=== PATIENT | female | born 1990 | race African-American/Black ===

== ENCOUNTER 2024-07-06 11:45 | Emergency (ER) | payer OTHER ==
[~2024-07-06] VITALS: Ht 175.3 cm; Wt 104.9 kg
[2024-07-06] MEDS: IBUPROFEN 800 MG TAB PO ONE (12:55)
[2024-07-06 12:56] VITALS: BP 162/95; TEMP 96.4; O2SAT 97
== END 2024-07-06 12:59 | disposition home or self-care (01) ==
LOC: M ED 11:45
DX: F32.A Depression, unspecified (principal); F41.9 Anxiety disorder, unspecified; M32.9 Systemic lupus erythematosus, unspecified

== ENCOUNTER → 2024-08-29 | Outpatient (CLI) | payer MEDICAID ==
[~2024-08-29] MED LIST: BUPR-766 PO; CETI10TA PO; CIMZ200K INJ; ERGO500029 PO; HYDR50TA70 PO; METR-265 PO; TRAZ-189 PO
== END ==
LOC: M OUTALCOH 08:38
PROVIDERS: ATTEND Psychiatry & Neurology Psychiatry
DX: F14.20 Cocaine dependence, uncomplicated (principal); F10.20 Alcohol dependence, uncomplicated; F17.200 Nicotine dependence, unspecified, uncomplicated

== ENCOUNTER 2024-09-19 15:00 | Outpatient (RCR) | payer MEDICAID | END 2024-09-22 | LOC: M OUTALCOH 15:00 | PROVIDERS: ATTEND Psychiatry & Neurology Psychiatry | DX: F14.20 Cocaine dependence, uncomplicated (principal); F10.10 Alcohol abuse, uncomplicated; F12.10 Cannabis abuse, uncomplicated; F17.200 Nicotine dependence, unspecified, uncomplicated | CPT/HCPCS: G0397 ×2 ==

== ENCOUNTER 2024-10-17 14:00 | Outpatient (RCR) | payer MEDICAID | END 2024-10-23 | LOC: M OUTALCOH 14:00 | PROVIDERS: ATTEND Psychiatry & Neurology Psychiatry | DX: F14.20 Cocaine dependence, uncomplicated (principal); F10.10 Alcohol abuse, uncomplicated; F12.20 Cannabis dependence, uncomplicated; F17.200 Nicotine dependence, unspecified, uncomplicated ==

== ENCOUNTER 2024-11-10 11:00 | Outpatient (RCR) | payer MEDICAID | END 2024-11-22 | LOC: M OUTALCOH 11:00 | PROVIDERS: ATTEND Psychiatry & Neurology Psychiatry | DX: F14.20 Cocaine dependence, uncomplicated (principal); F10.10 Alcohol abuse, uncomplicated; F12.20 Cannabis dependence, uncomplicated; F17.200 Nicotine dependence, unspecified, uncomplicated ==

== ENCOUNTER 2024-12-15 16:00 | Outpatient (RCR) | payer MEDICAID | END 2024-12-23 | LOC: M OUTALCOH 16:00 | PROVIDERS: ATTEND Psychiatry & Neurology Psychiatry | DX: F14.20 Cocaine dependence, uncomplicated (principal); F10.10 Alcohol abuse, uncomplicated; F12.20 Cannabis dependence, uncomplicated; F17.200 Nicotine dependence, unspecified, uncomplicated ==

== ENCOUNTER 2025-01-12 16:18 | Emergency (ER) | payer OTHER ==
[~2025-01-12] VITALS: Ht 167.6 cm; Wt 113.6 kg
[2025-01-12 16:20] VITALS: BP 131/80; TEMP 97; O2SAT 98
[2025-01-12] MEDS ORDERED: ARIP1TAB4 (16:30)
[2025-01-12 17:09] LABS: KETONE, URINE AUTO RFX NEGATIVE (NEGATIVE); LEUKOCYTE ESTERASE UR AUTO RFX NEGATIVE (NEGATIVE); MUCUS, URINE RFX SMALL (NEGATIVE); NITRITE, URINE AUTO RFX NEGATIVE (NEGATIVE); RBC, URINE AUTO RFX 1 /HPF (0-3); SQUAM EPITHELIAL CELL UR AURFX 6 /HPF (0-6); WBC, URINE AUTO RFX 2 /HPF (0-3)
[2025-01-13 12:50] LABS: Trichomonas vaginalis (AMP) NOT DETECTED (NEGATIVE)
[2025-01-13 13:12] LABS: GC DNA AMPLIFICATION NEGATIVE (NEGATIVE)
== END 2025-01-12 17:00 | disposition left against medical advice (07) ==
LOC: M ED 16:18
DX: Z53.21 Procedure and treatment not carried out due to patient leaving prior to being seen by health care provider (principal)

== ENCOUNTER 2025-01-18 16:00 | Outpatient (RCR) | payer MEDICAID ==
[~2025-01-18 16:00] MED LIST changes: +ARIP1TAB4
== END 2025-01-22 ==
LOC: M OUTALCOH 16:00
PROVIDERS: ATTEND Psychiatry & Neurology Psychiatry
DX: F14.20 Cocaine dependence, uncomplicated (principal); F10.10 Alcohol abuse, uncomplicated; F12.20 Cannabis dependence, uncomplicated; F17.200 Nicotine dependence, unspecified, uncomplicated

== ENCOUNTER 2025-01-30 16:15 | Outpatient (RCR) | payer MEDICAID | END 2025-02-22 | LOC: M OUTALCOH 16:15 | PROVIDERS: ATTEND Psychiatry & Neurology Psychiatry | DX: F14.20 Cocaine dependence, uncomplicated (principal); F10.10 Alcohol abuse, uncomplicated; F12.20 Cannabis dependence, uncomplicated; F17.200 Nicotine dependence, unspecified, uncomplicated ==